=== PATIENT | female | born 1965 | race African-American/Black ===

== ENCOUNTER → 2018-11-01 | Outpatient (CLI) | payer MEDICAID | LOC: FIMAGING 13:58 | PROVIDERS: ATTEND Family Medicine | DX: M13.841 Other specified arthritis, right hand (principal); M79.89 Other specified soft tissue disorders; M25.461 Effusion, right knee ==

== ENCOUNTER → 2018-12-13 | Outpatient (CLI) | payer MEDICAID | LOC: FIMAGING 13:26 | PROVIDERS: ATTEND Physician Assistant | DX: D25.9 Leiomyoma of uterus, unspecified (principal) ==